=== PATIENT | female | born 1965 | race Caucasian/White ===

== ENCOUNTER 2020-08-04 18:48 | Inpatient (IN) | payer MEDICAID ==
[~2020-08-04] VITALS: Ht 160 cm; Wt 102.0 kg
[~2020-08-04 18:48] MED LIST: DULO-31 PO; HYDR-4353 PO; INSU100V36 SQ; LANS30CA37 PO; METF1000 PO; OLME20TA15 PO; SIME80TA5 PO; WARF-113 PO; levamir SQ
[2020-08-04] MEDS ORDERED: temazepam 15mg capsule PO PRN (21:00)
[2020-08-04] MEDS ORDERED: LEVO75TA7 PO (21:24)
[2020-08-04] MEDS ORDERED: INSU100I31 SQ (21:24)
[2020-08-04] MEDS ORDERED: METH-797 PO (21:24)
[2020-08-04] MEDS ORDERED: LOSA50TA64 PO (21:24)
[2020-08-04] MEDS ORDERED: CARV3.122 PO (21:24)
[2020-08-04] MEDS ORDERED: FURO40TA4 PO (21:24)
[2020-08-04] MEDS ORDERED: INSU100I39 (21:24)
[2020-08-04] MEDS ORDERED: acetaminophen 325mg tablet PO PRN (22:10)
[2020-08-04] MEDS ORDERED: bisacodyl 10mg suppository rectal RC PRN (22:10)
[2020-08-04] MEDS ORDERED: diphenhydrAMINE 25mg capsule PO PRN (22:10)
[2020-08-04] MEDS ORDERED: magnesium hydroxide 30ml (MOM) UD suspension PO PRN (22:10)
[2020-08-04] MEDS ORDERED: diphenhydrAMINE 50 mg/ml inj IV PRN (22:10)
[2020-08-04] MEDS ORDERED: mag hydrox/Alum hydrox/simeth 30ml oral suspension PO PRN (22:10)
[2020-08-04] MEDS ORDERED: ondansetron/PF 4mg/2ml inj IV PRN (22:10)
[2020-08-04] MEDS ORDERED: acetaminophen 650mg rectal suppository RC PRN (22:10)
[2020-08-04] MEDS ORDERED: ipratropium/albuterol 3ml nebule NEB PRN (22:10)
[2020-08-04] MEDS ORDERED: dextrose ORAL solution 15 GM/59 ML bottle PO PRN ×2 (22:30)
[2020-08-04] MEDS ORDERED: dextrose 50%-water 50ml dispensing syringe IV PRN ×2 (22:30)
[2020-08-04] MEDS ORDERED: MESSAGE TO PHARMACY PO ONE (22:30)
[2020-08-04] MEDS ORDERED: glucagon, human recombinant 1mg kit SUBCUT PRN (22:30)
[2020-08-04 22:47] LABS: BASOPHILS # (AUTO) 0.1 X10'3 (0-0.2); BASOPHILS % (AUTO) 1.5 % (0-1); EOSINOPHILS % (AUTO) 0.4 % (0-6); HEMATOCRIT 37.8 % (35.0-45.0); HEMOGLOBIN 12.2 g/dl (12.0-16.0); LYMPHOCYTES # (AUTO) 1.6 X10'3 (1.1-4.8); LYMPHOCYTES % (AUTO) 33.4 % (21-51); MEAN CORPUSCULAR HEMOGLOBIN 27.3 PG (27.0-31.0); MEAN CORPUSCULAR HGB CONC 32.3 g/dL (33.0-36.5); MEAN CORPUSCULAR VOLUME 84.5 FL (78-98); MEAN PLATELET VOLUME 8.1 FL (7.4-10.4); MONOCYTES # (AUTO) 0.5 X10'3 (0-0.9); MONOCYTES % (AUTO) 9.1 % (2-12); NEUTROPHILS # (AUTO) 2.7 X10'3 (1.8-7.7); NEUTROPHILS % (AUTO) 55.6 % (42-75); PLATELET COUNT 234 X10'3 (140-440); RED BLOOD COUNT 4.47 X10'6 (4.20-5.60); RED CELL DISTRIBUTION WIDTH 15.9 % (11.5-14.5); WHITE BLOOD COUNT 4.9 X10'3 (4.5-11.0)
[2020-08-04 22:56] LABS: PARTIAL THROMBOPLASTIN TIME 41 SECONDS (22-32)
[2020-08-04 22:59] LABS: ALANINE AMINOTRANSFERASE 22 U/L (12-78); ALBUMIN 2.9 G/DL (3.4-5.0); ALBUMIN/GLOBULIN RATIO 0.8 (1.1-1.5); ALKALINE PHOSPHATASE 81 IU/L (46-116); ANION GAP 9 (8-16); ASPARTATE AMINO TRANSFERASE 16 U/L (10-37); BILIRUBIN,TOTAL 0.5 MG/DL (0.1-1.0); BLOOD UREA NITROGEN 20 MG/DL (7-18); BUN/CREATININE RATIO 13.4 (6.6-38.0); CHLORIDE 100 MMOL/L (99-107); CREATININE 1.49 MG/DL (0.40-0.90); GLUCOSE 307 MG/DL (70-104); POTASSIUM 3.9 MMOL/L (3.5-5.1); SODIUM 141 MMOL/L (135-145); TOTAL PROTEIN 6.6 G/DL (6.4-8.2); eGFR 37 ML/MIN
[2020-08-04 23:00] LABS: HEMOGLOBIN A1C 9.3 % (4.5-6.2)
[2020-08-04 23:08] LABS: MAGNESIUM 1.9 MG/DL (1.5-2.4)
[2020-08-05] MEDS ORDERED: methylPREDNISolone sod succ 125mg/2ml vial IV SCH
[2020-08-05 03:20] LABS: ALANINE AMINOTRANSFERASE 21 U/L (12-78); ALBUMIN 2.9 G/DL (3.4-5.0); ALBUMIN/GLOBULIN RATIO 0.8 (1.1-1.5); ALKALINE PHOSPHATASE 78 IU/L (46-116); ANION GAP 11 (8-16); ASPARTATE AMINO TRANSFERASE 13 U/L (10-37); BILIRUBIN,TOTAL 0.5 MG/DL (0.1-1.0); BLOOD UREA NITROGEN 21 MG/DL (7-18); BUN/CREATININE RATIO 15.7 (6.6-38.0); CALCIUM 8.1 MG/DL (8.5-10.1); CHLORIDE 101 MMOL/L (99-107); CHOL/HDL RATIO 3.7 (0.00-4.99); CHOLESTEROL 140 MG/DL (0-200); CREATININE 1.34 MG/DL (0.40-0.90); GLUCOSE 294 MG/DL (70-104); HDL CHOLESTEROL 38 MG/DL (35-60); LDL CHOLESTEROL 81 MG/DL (50-100); POTASSIUM 3.9 MMOL/L (3.5-5.1); SODIUM 141 MMOL/L (135-145); TOTAL CARBON DIOXIDE 28.9 MMOL/L (24-32); TOTAL PROTEIN 6.7 G/DL (6.4-8.2); TRIGLYCERIDES 114 MG/DL (20-135); eGFR 41 ML/MIN
[2020-08-05 03:21] LABS: BASOPHILS % (AUTO) 0.2 % (0-1); EOSINOPHILS % (AUTO) 0.5 % (0-6); HEMATOCRIT 37.7 % (35.0-45.0); HEMOGLOBIN 12.1 g/dl (12.0-16.0); LYMPHOCYTES # (AUTO) 1.7 X10'3 (1.1-4.8); LYMPHOCYTES % (AUTO) 33.5 % (21-51); MEAN CORPUSCULAR HEMOGLOBIN 27.4 PG (27.0-31.0); MEAN CORPUSCULAR HGB CONC 32.1 g/dL (33.0-36.5); MEAN CORPUSCULAR VOLUME 85.3 FL (78-98); MEAN PLATELET VOLUME 8.1 FL (7.4-10.4); MONOCYTES # (AUTO) 0.5 X10'3 (0-0.9); MONOCYTES % (AUTO) 10.4 % (2-12); NEUTROPHILS # (AUTO) 2.9 X10'3 (1.8-7.7); NEUTROPHILS % (AUTO) 55.4 % (42-75); PLATELET COUNT 227 X10'3 (140-440); RED BLOOD COUNT 4.42 X10'6 (4.20-5.60); RED CELL DISTRIBUTION WIDTH 16.7 % (11.5-14.5); WHITE BLOOD COUNT 5.2 X10'3 (4.5-11.0)
[2020-08-05] MEDS: normal saline 1000ml 1,000 ML IV SCH ×2 (03:44→22:10)
[2020-08-05] MEDS: heparin, porcine 5000 units/ml vial SQ SCH ×2 (03:44→10:12)
[2020-08-05] MEDS ORDERED: CefTRIAXone/D5W-Rocephin 1gm 50 ML IV SCH (08:00)
[2020-08-05] MEDS ORDERED: azithromycin/NS 500mg/250ml 250 ML IV SCH (08:00)
[2020-08-05] MEDS ORDERED: dexamethasone sod phosphate 10mg/ml inj IV SCH (08:30)
[2020-08-05] MEDS ORDERED: ALBUTEROL INHALER 1 PUFF/90 MCG INHALER IH PRN (08:30)
[2020-08-05 09:59] LABS: C-REACTIVE PROTEIN 10.99 MG/DL (0.0-0.5)
[2020-08-05] MEDS: pantoprazole 40 MG vial IV SCH (10:04)
[2020-08-05] MEDS: REMDESIVIR (EUA) 100mg inj. 100 MG in normal saline 100ml IV soln 100 ML IV SCH (10:05)
[2020-08-05] MEDS: losartan 25mg tablet PO SCH (10:06)
[2020-08-05] MEDS: levoTHYROXINE 75mcg tablet PO SCH (10:06)
[2020-08-05] MEDS: duloxetine 30mg CAPSULE.DR PO SCH (10:12)
[2020-08-05] MEDS: carVEDilol 3.125mg tablet PO SCH ×2 (10:12→20:49)
--- NOTE | 2020-08-05 10:18 | NUR ---
Patient lying on right side when I entered room and got her phone for a call. Berta axox4 LUIS, denies pain, sob, numbness tingling Patient's BP cuff changed to adult long, patient sat probe off and when placed with her on nc 3.5 liter spo2 read 85% with good waveform nc to 6 liters
[2020-08-05 10:53] LABS: D-DIMER 0.36 MG/L FEU (0-0.50)
[2020-08-05] MEDS ORDERED: SPIR100T5 PO (11:18)
[2020-08-05] MEDS ORDERED: ATOR40TA72 PO (11:18)
[2020-08-05] MEDS ORDERED: GABA300C PO (11:18)
[2020-08-05] MEDS ORDERED: WARF1TAB83 PO (11:18)
--- NOTE | 2020-08-05 12:03 | NUR ---
PATIENT DOES NOT REMEMBER HER MEDICATIONS. CALLING HER
--- NOTE | 2020-08-05 12:16 | NUR ---
SPOKE TO AND THEN PHARMACIST TO CORRECT AND UPDATE MEDICATION RECONCILIATION
--- NOTE | 2020-08-05 20:00 | NUR ---
PER DISCUSSION WITH ADJUNCT INSTRUCTOR LOGAN, THE CORRECTIVE DOSE USING THE CALCULATION OF 14 UNITS FOR A BLOOD SUGAR OF 477
--- NOTE | 2020-08-05 20:34 | NUR ---
ATTEMPTED TO CALL REPORT
[2020-08-05] MEDS: insulin Lispro (HumaLOG) vial - multi-dose SQ SCH ×2 (20:47→22:08)
[2020-08-05] MEDS: gabapentin 300mg capsule PO SCH (20:50)
[2020-08-05] MEDS ORDERED: cyclobenzaprine 10mg tablet PO PRN (21:00)
[2020-08-05] MEDS ORDERED: warfarin 5mg tablet PO ONE (21:00)
--- NOTE | 2020-08-05 21:10 | NUR ---
REPORT TO HELP DESK ASSOCIATE KEIRA, PATIENT HAS ALL HER BELONGINGS WITH HER: CLOTHES THAT SHE IS WEARING PATIETN TO ROOM 3008 WITH RN ON MONITOR
[2020-08-05 21:20] VITALS: BP 104/72
--- NOTE | 2020-08-05 21:20 | NUR ---
Patient arrived on unit, vitals stable
[2020-08-05] MEDS: insulin glargine (Lantus) pen - multi-dose SQ SCH (22:12)
[2020-08-06 02:00] VITALS: BP 93/50
[2020-08-06] MEDS ORDERED: cyclobenzaprine 10mg tablet PO PRN (02:24)
--- NOTE | 2020-08-06 06:03 | NUR ---
orientee documentation: I have reviewed and agree with all interventions, assessments performed and documented by Laura MEJÍA.
--- NOTE | 2020-08-06 06:20 | NUR ---
Patient in room PCU 3008. I have received report from Hali MEJÍA and had the opportunity to ask questions and assume patient care.
--- NOTE | 2020-08-06 06:29 | NUR ---
Problems reprioritized. Patient report given, questions answered & plan of care reviewed with Purnima MEJÍA.
[2020-08-06] MEDS: losartan 25mg tablet PO SCH (08:00)
[2020-08-06 08:01] LABS: D-DIMER 0.22 MG/L FEU (0-0.50)
[2020-08-06 08:08] LABS: BASOPHILS % (AUTO) 0 % (0-1); EOSINOPHILS % (AUTO) 0 % (0-6); HEMATOCRIT 36.8 % (35.0-45.0); HEMOGLOBIN 11.9 g/dl (12.0-16.0); LYMPHOCYTES % (AUTO) 16.2 % (21-51); MEAN CORPUSCULAR HEMOGLOBIN 27.6 PG (27.0-31.0); MEAN CORPUSCULAR HGB CONC 32.3 g/dL (33.0-36.5); MEAN CORPUSCULAR VOLUME 85.4 FL (78-98); MEAN PLATELET VOLUME 8.7 FL (7.4-10.4); MONOCYTES # (AUTO) 0.5 X10'3 (0-0.9); MONOCYTES % (AUTO) 8.9 % (2-12); NEUTROPHILS # (AUTO) 4.5 X10'3 (1.8-7.7); NEUTROPHILS % (AUTO) 74.9 % (42-75); PLATELET COUNT 274 X10'3 (140-440); RED BLOOD COUNT 4.31 X10'6 (4.20-5.60)
[2020-08-06 08:29] LABS: ALANINE AMINOTRANSFERASE 26 U/L (12-78); ALBUMIN 2.9 G/DL (3.4-5.0); ALBUMIN/GLOBULIN RATIO 0.7 (1.1-1.5); ALKALINE PHOSPHATASE 75 IU/L (46-116); ANION GAP 9 (8-16); ASPARTATE AMINO TRANSFERASE 14 U/L (10-37); BILIRUBIN,TOTAL 0.4 MG/DL (0.1-1.0); BLOOD UREA NITROGEN 33 MG/DL (7-18); BUN/CREATININE RATIO 25.8 (6.6-38.0); C-REACTIVE PROTEIN 9.17 MG/DL (0.0-0.5); CALCIUM 8.5 MG/DL (8.5-10.1); CHLORIDE 101 MMOL/L (99-107); CREATININE 1.28 MG/DL (0.40-0.90); GLUCOSE 420 MG/DL (70-104); POTASSIUM 5.4 MMOL/L (3.5-5.1); SODIUM 139 MMOL/L (135-145); TOTAL CARBON DIOXIDE 28.6 MMOL/L (24-32); TOTAL PROTEIN 6.8 G/DL (6.4-8.2); eGFR 44 ML/MIN
[2020-08-06] MEDS ORDERED: normal saline 1000ml 1,000 ML IV SCH (08:45)
[2020-08-06 09:00] VITALS: BP_SYST 100; BP_SYST 98; BP_DIAS 54; BP_DIAS 55
[2020-08-06] MEDS: duloxetine 30mg CAPSULE.DR PO SCH (09:09)
[2020-08-06] MEDS: REMDESIVIR (EUA) 100mg inj. 100 MG in normal saline 100ml IV soln 100 ML IV SCH (09:09)
[2020-08-06] MEDS: acetaminophen 325mg tablet PO PRN (09:10)
[2020-08-06] MEDS: gabapentin 300mg capsule PO SCH ×3 (09:10→21:29)
[2020-08-06] MEDS: carVEDilol 3.125mg tablet PO SCH ×2 (09:10→19:32)
[2020-08-06] MEDS: levoTHYROXINE 75mcg tablet PO SCH (09:11)
[2020-08-06] MEDS: atorvastatin 20mg tablet PO SCH (09:11)
[2020-08-06] MEDS: dexamethasone 4mg/ml inj IV SCH ×2 (09:13→19:29)
[2020-08-06] MEDS: pantoprazole 40 MG vial IV SCH (09:13)
[2020-08-06] MEDS: insulin Lispro (HumaLOG) vial - multi-dose SQ SCH ×4 (10:11→21:39)
[2020-08-06 12:00] VITALS: BP 107/51
--- NOTE | 2020-08-06 12:12 | NUR ---
DM Consult: A1C 9.3 hx T2DM admit DX COVID-19 per EMR. Written DM ed w/ RD contact information placed in pt chart. Addendum: 08/06/20 at [address] Amended: Links added.
[2020-08-06 14:29] LABS: ALBUMIN 2.8 G/DL (3.4-5.0); ANION GAP 9 (8-16); BLOOD UREA NITROGEN 34 MG/DL (7-18); BUN/CREATININE RATIO 23.6 (6.6-38.0); CALCIUM 8.5 MG/DL (8.5-10.1); CHLORIDE 98 MMOL/L (99-107); CREATININE 1.44 MG/DL (0.40-0.90); POTASSIUM 5.5 MMOL/L (3.5-5.1); SODIUM 134 MMOL/L (135-145); eGFR 38 ML/MIN
[2020-08-06 14:30] LABS: GLUCOSE 498 MG/DL (70-104)
[2020-08-06 15:00] VITALS: BP 117/59
[2020-08-06] MEDS ORDERED: sodium polystyrene sulfonate 15gm/60ml oral suspension PO ONE (17:30)
[2020-08-06 18:00] VITALS: BP 121/64
--- NOTE | 2020-08-06 18:32 | NUR ---
Problems reprioritized. Patient report given, questions answered & plan of care reviewed with Brook MEJÍA.
[2020-08-06] MEDS ORDERED: warfarin 3mg tablet PO ONE (21:00)
--- NOTE | 2020-08-06 21:30 | NUR ---
MED NOTE: Coumadin non administered, order needs to be clarified with prescribing MD and pharmacy.
[2020-08-06] MEDS: insulin glargine (Lantus) pen - multi-dose SQ SCH (21:41)
[2020-08-06 22:00] VITALS: BP 114/62
[2020-08-07 02:00] VITALS: BP 105/68
--- NOTE | 2020-08-07 06:38 | NUR ---
Problems reprioritized. Patient report given, questions answered & plan of care reviewed with Lupe MEJÍA.
[2020-08-07 07:00] VITALS: BP 98/59
[2020-08-07 07:15] LABS: BASOPHILS % (AUTO) 0.1 % (0-1); EOSINOPHILS % (AUTO) 0 % (0-6); HEMATOCRIT 36.1 % (35.0-45.0); HEMOGLOBIN 11.7 g/dl (12.0-16.0); LYMPHOCYTES % (AUTO) 12.5 % (21-51); MEAN CORPUSCULAR HEMOGLOBIN 27.5 PG (27.0-31.0); MEAN CORPUSCULAR HGB CONC 32.5 g/dL (33.0-36.5); MEAN CORPUSCULAR VOLUME 84.4 FL (78-98); MEAN PLATELET VOLUME 8.8 FL (7.4-10.4); MONOCYTES # (AUTO) 0.5 X10'3 (0-0.9); MONOCYTES % (AUTO) 6.3 % (2-12); NEUTROPHILS # (AUTO) 6.3 X10'3 (1.8-7.7); NEUTROPHILS % (AUTO) 81.1 % (42-75); PLATELET COUNT 279 X10'3 (140-440); RED BLOOD COUNT 4.28 X10'6 (4.20-5.60); RED CELL DISTRIBUTION WIDTH 16.1 % (11.5-14.5); WHITE BLOOD COUNT 7.8 X10'3 (4.5-11.0)
[2020-08-07 07:27] LABS: D-DIMER < 0.19 MG/L FEU (0-0.50)
[2020-08-07 07:45] LABS: ALANINE AMINOTRANSFERASE 24 U/L (12-78); ALBUMIN 2.9 G/DL (3.4-5.0); ALBUMIN/GLOBULIN RATIO 0.8 (1.1-1.5); ALKALINE PHOSPHATASE 74 IU/L (46-116); ANION GAP 11 (8-16); ASPARTATE AMINO TRANSFERASE 15 U/L (10-37); BILIRUBIN,TOTAL 0.4 MG/DL (0.1-1.0); BLOOD UREA NITROGEN 33 MG/DL (7-18); BUN/CREATININE RATIO 30.6 (6.6-38.0); CALCIUM 8.5 MG/DL (8.5-10.1); CHLORIDE 104 MMOL/L (99-107); CREATININE 1.08 MG/DL (0.40-0.90); GLUCOSE 303 MG/DL (70-104); POTASSIUM 4.4 MMOL/L (3.5-5.1); SODIUM 141 MMOL/L (135-145); TOTAL PROTEIN 6.5 G/DL (6.4-8.2); eGFR 53 ML/MIN
[2020-08-07] MEDS: REMDESIVIR (EUA) 100mg inj. 100 MG in normal saline 100ml IV soln 100 ML IV SCH (07:46)
[2020-08-07] MEDS: normal saline 1000ml 1,000 ML IV SCH (07:46)
[2020-08-07] MEDS: dexamethasone 4mg/ml inj IV SCH ×2 (07:47→19:50)
[2020-08-07] MEDS: pantoprazole 40mg Tablet.DR PO SCH (07:47)
[2020-08-07] MEDS: levoTHYROXINE 75mcg tablet PO SCH (07:47)
[2020-08-07] MEDS: duloxetine 30mg CAPSULE.DR PO SCH (07:48)
[2020-08-07] MEDS: atorvastatin 20mg tablet PO SCH (07:48)
[2020-08-07] MEDS: gabapentin 300mg capsule PO SCH ×3 (07:48→19:50)
[2020-08-07] MEDS: carVEDilol 3.125mg tablet PO SCH ×2 (07:48→19:50)
--- NOTE | 2020-08-07 10:20 | NUR ---
Did not give Humalog. Med was not available. Called pharmacy and still awaiting med.
[2020-08-07 11:00] VITALS: BP 130/59
[2020-08-07] MEDS: losartan 25mg tablet PO SCH (12:46)
[2020-08-07] MEDS: insulin Lispro (HumaLOG) vial - multi-dose SQ SCH ×4 (13:42→21:24)
[2020-08-07 15:00] VITALS: BP 122/67
--- NOTE | 2020-08-07 17:47 | NUR ---
Paged Dr. Francis regarding blood sugar. PAGER ID: [phone] MESSAGE: [phone] Gertrudis Isabel. Blood sugar is still high its 409. [facility] Crystal [phone].
--- NOTE | 2020-08-07 17:48 | NUR ---
Dr. Francis wants 35 units of humalog insulin given now.
[2020-08-07 18:00] VITALS: BP 119/71
--- NOTE | 2020-08-07 18:09 | NUR ---
Dr. Francis wants to continue Humalog per protocol for dinner.
--- NOTE | 2020-08-07 18:20 | NUR ---
Problems reprioritized. Patient report given, questions answered & plan of care reviewed with Brook MEJÍA. Patient stable at transfer of care.
[2020-08-07] MEDS ORDERED: warfarin 3mg tablet PO ONE (21:00)
[2020-08-07] MEDS: insulin glargine (Lantus) pen - multi-dose SQ SCH (21:25)
[2020-08-07 22:00] VITALS: BP 126/71
[2020-08-08 02:00] VITALS: BP 124/70
[2020-08-08] MEDS: acetaminophen 325mg tablet PO PRN (02:40)
--- NOTE | 2020-08-08 06:14 | NUR ---
Problems reprioritized. Patient report given, questions answered & plan of care reviewed with Lupe Brown.
--- NOTE | 2020-08-08 06:15 | NUR ---
Patient in room PCU 3008. I have received report from Brook MEJÍA and had the opportunity to ask questions and assume patient care.
[2020-08-08 06:22] LABS: D-DIMER 0.22 MG/L FEU (0-0.50)
[2020-08-08 06:32] LABS: BASOPHILS % (AUTO) 0.3 % (0-1); EOSINOPHILS % (AUTO) 0 % (0-6); HEMATOCRIT 38.2 % (35.0-45.0); HEMOGLOBIN 12.5 g/dl (12.0-16.0); LYMPHOCYTES % (AUTO) 13.2 % (21-51); MEAN CORPUSCULAR HEMOGLOBIN 27.8 PG (27.0-31.0); MEAN CORPUSCULAR HGB CONC 32.7 g/dL (33.0-36.5); MEAN PLATELET VOLUME 8.6 FL (7.4-10.4); MONOCYTES # (AUTO) 0.7 X10'3 (0-0.9); MONOCYTES % (AUTO) 8.9 % (2-12); NEUTROPHILS # (AUTO) 5.8 X10'3 (1.8-7.7); NEUTROPHILS % (AUTO) 77.6 % (42-75); PLATELET COUNT 293 X10'3 (140-440); RED CELL DISTRIBUTION WIDTH 15.9 % (11.5-14.5); WHITE BLOOD COUNT 7.5 X10'3 (4.5-11.0)
[2020-08-08 06:47] LABS: ALANINE AMINOTRANSFERASE 26 U/L (12-78); ALBUMIN 2.9 G/DL (3.4-5.0); ALBUMIN/GLOBULIN RATIO 0.8 (1.1-1.5); ALKALINE PHOSPHATASE 73 IU/L (46-116); ANION GAP 9 (8-16); ASPARTATE AMINO TRANSFERASE 13 U/L (10-37); BILIRUBIN,TOTAL 0.4 MG/DL (0.1-1.0); BLOOD UREA NITROGEN 25 MG/DL (7-18); BUN/CREATININE RATIO 22.9 (6.6-38.0); C-REACTIVE PROTEIN 2.99 MG/DL (0.0-0.5); CALCIUM 8.7 MG/DL (8.5-10.1); CHLORIDE 108 MMOL/L (99-107); CREATININE 1.09 MG/DL (0.40-0.90); GLUCOSE 133 MG/DL (70-104); POTASSIUM 4.4 MMOL/L (3.5-5.1); SODIUM 145 MMOL/L (135-145); TOTAL CARBON DIOXIDE 27.7 MMOL/L (24-32); TOTAL PROTEIN 6.5 G/DL (6.4-8.2); eGFR 53 ML/MIN
[2020-08-08 07:00] VITALS: BP 121/65
[2020-08-08] MEDS: REMDESIVIR (EUA) 100mg inj. 100 MG in normal saline 100ml IV soln 100 ML IV SCH (07:37)
[2020-08-08] MEDS: dexamethasone 4mg/ml inj IV SCH ×2 (07:38→19:50)
[2020-08-08] MEDS: atorvastatin 20mg tablet PO SCH (07:38)
[2020-08-08] MEDS: duloxetine 30mg CAPSULE.DR PO SCH (07:38)
[2020-08-08] MEDS: pantoprazole 40mg Tablet.DR PO SCH (07:39)
[2020-08-08] MEDS: carVEDilol 3.125mg tablet PO SCH ×2 (07:39→19:50)
[2020-08-08] MEDS: losartan 25mg tablet PO SCH (07:39)
[2020-08-08] MEDS: gabapentin 300mg capsule PO SCH ×2 (07:40→19:50)
[2020-08-08] MEDS: levoTHYROXINE 75mcg tablet PO SCH (07:40)
[2020-08-08] MEDS: normal saline 1000ml 1,000 ML IV SCH (07:45)
[2020-08-08] MEDS: insulin Lispro (HumaLOG) vial - multi-dose SQ SCH ×3 (09:08→20:01)
[2020-08-08 11:00] VITALS: BP 130/75
--- NOTE | 2020-08-08 12:38 | NUR ---
O2 Sat at rest on room air 94% If below 89%: Recovery O2 Sat at rest on ___LPM:___%:___% via (mask/nasal cannula, etc..) No further documentation is necessary. If O2 Sat did not drop below 89% on room air,ambulate patient on room air. O2 Sat while ambulating on room air: 81% Recovery O2 Sat while ambulating on 4L nasal cannula 91% No further documentation is necessary. If patient does not drop below 89% while ambulating, he/she does not qualify for home O2.
[2020-08-08 15:00] VITALS: BP 134/72
--- NOTE | 2020-08-08 17:52 | NUR ---
Paged Dr. Schumacher regarding blood sugar PAGER ID: [phone] MESSAGE: [phone] Gertrudis Isabel. Blood sugar 302 before dinner. [facility] Lupe [phone]
--- NOTE | 2020-08-08 18:19 | NUR ---
Problems reprioritized. Patient report given, questions answered & plan of care reviewed with Sridevi MEJÍA. Patient stable at transfer of care.
[2020-08-08] MEDS: insulin glargine (Lantus) pen - multi-dose SQ SCH (19:58)
[2020-08-08 20:00] VITALS: BP 149/72
[2020-08-08] MEDS ORDERED: warfarin 3mg tablet PO ONE (21:00)
[2020-08-08 22:00] VITALS: BP 122/90
[2020-08-09 02:00] VITALS: BP 119/57
[2020-08-09 05:00] VITALS: BP 125/77
[2020-08-09 07:50] LABS: BASOPHILS % (AUTO) 0.5 % (0-1); EOSINOPHILS % (AUTO) 0 % (0-6); HEMATOCRIT 39.8 % (35.0-45.0); HEMOGLOBIN 12.7 g/dl (12.0-16.0); LYMPHOCYTES % (AUTO) 13.9 % (21-51); MEAN CORPUSCULAR HEMOGLOBIN 27.1 PG (27.0-31.0); MEAN CORPUSCULAR VOLUME 84.8 FL (78-98); MONOCYTES # (AUTO) 0.6 X10'3 (0-0.9); MONOCYTES % (AUTO) 7.8 % (2-12); NEUTROPHILS # (AUTO) 5.7 X10'3 (1.8-7.7); NEUTROPHILS % (AUTO) 77.8 % (42-75); PLATELET COUNT 304 X10'3 (140-440); RED BLOOD COUNT 4.69 X10'6 (4.20-5.60); RED CELL DISTRIBUTION WIDTH 16.4 % (11.5-14.5); WHITE BLOOD COUNT 7.4 X10'3 (4.5-11.0)
[2020-08-09 07:54] LABS: D-DIMER 0.28 MG/L FEU (0-0.50)
[2020-08-09 08:01] LABS: ALANINE AMINOTRANSFERASE 29 U/L (12-78); ALBUMIN 2.9 G/DL (3.4-5.0); ALBUMIN/GLOBULIN RATIO 0.8 (1.1-1.5); ALKALINE PHOSPHATASE 95 IU/L (46-116); ANION GAP 6 (8-16); ASPARTATE AMINO TRANSFERASE 13 U/L (10-37); BILIRUBIN,TOTAL 0.5 MG/DL (0.1-1.0); BLOOD UREA NITROGEN 30 MG/DL (7-18); BUN/CREATININE RATIO 25.2 (6.6-38.0); C-REACTIVE PROTEIN 1.92 MG/DL (0.0-0.5); CALCIUM 8.8 MG/DL (8.5-10.1); CHLORIDE 104 MMOL/L (99-107); CREATININE 1.19 MG/DL (0.40-0.90); GLUCOSE 311 MG/DL (70-104); POTASSIUM 4.7 MMOL/L (3.5-5.1); SODIUM 140 MMOL/L (135-145); TOTAL CARBON DIOXIDE 29.7 MMOL/L (24-32); TOTAL PROTEIN 6.5 G/DL (6.4-8.2); eGFR 47 ML/MIN
[2020-08-09] MEDS: dexamethasone 4mg/ml inj IV SCH (08:20)
[2020-08-09] MEDS: duloxetine 30mg CAPSULE.DR PO SCH (08:21)
[2020-08-09] MEDS: gabapentin 300mg capsule PO SCH (08:21)
[2020-08-09] MEDS: losartan 25mg tablet PO SCH (08:21)
[2020-08-09] MEDS: carVEDilol 3.125mg tablet PO SCH (08:21)
[2020-08-09] MEDS: atorvastatin 20mg tablet PO SCH (08:21)
[2020-08-09] MEDS: levoTHYROXINE 75mcg tablet PO SCH (08:21)
[2020-08-09] MEDS: pantoprazole 40mg Tablet.DR PO SCH (08:22)
[2020-08-09] MEDS: insulin Lispro (HumaLOG) vial - multi-dose SQ SCH ×2 (09:43→13:08)
[2020-08-09 11:00] VITALS: BP 132/71
[2020-08-09] MEDS ORDERED: PANT40TA54 PO (14:26)
[2020-08-09] MEDS ORDERED: DEXA6TAB PO (14:26)
--- NOTE | 2020-08-09 15:10 | NUR ---
Patient safe for discharged per providers orders. Medications called into pharmacy. PIV discontinued and cannula intact. Telemetry discontinued. Belongings sent home with patient. Patient wheeled to lobby by nurse. Went over discharge paper work with patient and spouse. Patient went home in private vehicle with spouse.
--- NOTE | 2020-08-09 15:21 | NUR ---
Initial: Pt presented to ER via air transport for COVID-19 pneumonia. Per MD note, pt improving on 4 L of oxygen per nasal cannula. Pt PO intake average 100% on carb controlled diet, pt meeting estimated nutrient needs. Last BM 08/07. Will continue to monitor for additional nutrition kcal/protein needs. Recommendations: 1) Continue carb controlled diet per MD 2) Bowel care per Rx 3) Scaled wt per Rx Addendum: 08/09/20 at [address] Amended: Links added. Addendum: 08/09/20 at [address] NADINE agrees w/ above underwriting intern note.
[2020-08-09] MEDS ORDERED: warfarin 3mg tablet PO ONE (21:00)
--- NOTE | 2020-08-10 14:34 | NUR ---
CASE MANAGEMENT DISCHARGE FOLLOW UP: Spoke with pt's , Abner, via telephone. Reports that pt is feeling very tired, SOB with exertion that resolves with rest, admits to an episode of transient CP this AM, describes pain as getting worse with inspiration, states self resolved, understands when to contact EMS/go to ED for CP; denies dizziness, fever/chills. Verbalizes understanding of s/sx requiring further evaluation/emergent assistance. Pt wearing O2 via NC @ 4L/min, states does not have an SpO2 monitor, advised that they can purchase OTC from any pharmacy, he verbalizes understanding. Educated pt's on purpose of decadron medication, he verbalizes understanding. Verbalizes compliance with MD discharge instructions. Verbalizes understanding of the importance in making/keeping follow-up appointments, they have called for an appointment with PCP, just waiting on callback. States no further questions/concerns at this time.
== END 2020-08-09 14:52 | disposition home or self-care (01) | DRG 137 ==
LOC: ER 18:50 → ED HOLD 22:07 → PCU 3S 08-05 21:36
PROVIDERS: ADMIT Family Medicine; ATTEND Family Medicine
PROC: XW033E5 Introduction of Remdesivir Anti-infective into Peripheral Vein, Percutaneous Approach, New Technology Group 5 (ICD-10-PCS; principal; 2020-08-05)
DX: U07.1 COVID-19 (principal); J96.01 Acute respiratory failure with hypoxia; J12.82 Pneumonia due to coronavirus disease 2019; N17.9 Acute kidney failure, unspecified; I11.0 Hypertensive heart disease with heart failure; I50.22 Chronic systolic (congestive) heart failure; E03.9 Hypothyroidism, unspecified; E11.65 Type 2 diabetes mellitus with hyperglycemia; E78.5 Hyperlipidemia, unspecified; E66.01 Morbid (severe) obesity due to excess calories; J45.909 Unspecified asthma, uncomplicated; Z68.39 Body mass index [BMI] 39.0-39.9, adult; Z86.718 Personal history of other venous thrombosis and embolism; Z86.73 Personal history of transient ischemic attack (TIA), and cerebral infarction without residual deficits; Z90.710 Acquired absence of both cervix and uterus; Z88.5 Allergy status to narcotic agent; Z88.8 Allergy status to other drugs, medicaments and biological substances; Z79.899 Other long term (current) drug therapy; Z79.4 Long term (current) use of insulin; E87.5 Hyperkalemia
CPT/HCPCS: 36415; 71270; 74176; 80048; 80053; 80061; 82948; 83036; 83605; 83735; 83880; 84100; 84145; 84443; 84484; 85025; 85379; 85610; 85730; 86140; 87040; 87081; 94760; 99285; C9113; G0378; J1100; J1644; J1815; J2930; J7030

== ENCOUNTER 2022-04-11 12:40 | Inpatient (IN) | payer MEDICAID ==
[~2022-04-11] VITALS: Ht 157.5 cm; Wt 96.8 kg
[~2022-04-11 12:40] MED LIST changes: +ATOR40TA72 PO; +CARV3.122 PO; +DEXA6TAB PO; +FURO40TA4 PO; +GABA300C PO; -HYDR-4353 PO; +INSU100I31 SQ; +INSU100I39 SQ; -INSU100V36 SQ; -LANS30CA37 PO; +LEVO75TA7 PO; +LOSA50TA64 PO; +METH-797 PO; -OLME20TA15 PO; +PANT40TA54 PO; -SIME80TA5 PO; +SPIR100T5 PO; +WARF1TAB83 PO; -levamir SQ
[2022-04-11 17:48] LABS: BASOPHILS % (AUTO) 0.5 % (0-1); EOSINOPHILS # (AUTO) 0.1 X10'3 (0-0.9); EOSINOPHILS % (AUTO) 1.5 % (0-6); LYMPHOCYTES # (AUTO) 1.8 X10'3 (1.1-4.8); LYMPHOCYTES % (AUTO) 20.1 % (21-51); MEAN CORPUSCULAR HEMOGLOBIN 19.3 PG (27.0-31.0); MEAN CORPUSCULAR HGB CONC 29.8 g/dL (33.0-36.5); MEAN CORPUSCULAR VOLUME 64.7 FL (78-98); MEAN PLATELET VOLUME 7.7 FL (7.4-10.4); MONOCYTES # (AUTO) 0.7 X10'3 (0-0.9); MONOCYTES % (AUTO) 7.4 % (2-12); NEUTROPHILS # (AUTO) 6.4 X10'3 (1.8-7.7); NEUTROPHILS % (AUTO) 70.5 % (42-75); PLATELET COUNT 462 X10'3 (140-440); RED BLOOD COUNT 3.28 X10'6 (4.20-5.60); RED CELL DISTRIBUTION WIDTH 19.6 % (11.5-14.5)
[2022-04-11 17:53] LABS: APTT 32 SECONDS (22-32)
[2022-04-11 17:55] LABS: HEMOGLOBIN 6.3 g/dl (12.0-16.0)
[2022-04-11 17:56] LABS: ALANINE AMINOTRANSFERASE 16 U/L (12-78); ALBUMIN 3.4 G/DL (3.4-5.0); ALBUMIN/GLOBULIN RATIO 0.9 (1.1-1.5); ALKALINE PHOSPHATASE 120 IU/L (46-116); ANION GAP 5 (8-16); ASPARTATE AMINO TRANSFERASE 11 U/L (10-37); BILIRUBIN,TOTAL 0.3 MG/DL (0.1-1.0); BLOOD UREA NITROGEN 21 MG/DL (7-18); BUN/CREATININE RATIO 14.5 (6.6-38.0); CALCIUM 9.2 MG/DL (8.5-10.1); CHLORIDE 96 MMOL/L (99-107); CREATININE 1.45 MG/DL (0.40-0.90); GLUCOSE 278 MG/DL (70-104); HEMATOCRIT 21.2 % (35.0-45.0); POTASSIUM 3.8 MMOL/L (3.5-5.1); SODIUM 134 MMOL/L (135-145); TOTAL CARBON DIOXIDE 32.7 MMOL/L (24-32); eGFR 37 ML/MIN
[2022-04-11 18:35] LABS: ANISOCYTOSIS 2+; MICROCYTOSIS 2+; PLATELET ESTIMATE INCREASED
[2022-04-11 18:36] LABS: ELLIPTOCYTES 1+; HYPOCHROMASIA 3+; POLYCHROMASIA FEW
[2022-04-11] MEDS ORDERED: diphenhydrAMINE 50 mg/ml inj IV STA (19:04)
--- NOTE | 2022-04-11 19:30 | NUR ---
Rehabilitation Inspector agrees with A Adán Guillory assessment.
[2022-04-11] MEDS ORDERED: acetaminophen 325mg tablet PO PRN (20:20)
[2022-04-11] MEDS ORDERED: potassium Cl 40MEQ/1/2NS 520ml 520 ML IV PRN (20:20)
[2022-04-11] MEDS ORDERED: ondansetron/PF 4mg/2ml inj IV PRN (20:20)
[2022-04-11] MEDS ORDERED: magnesium Cl slow-release 64mg tablet PO PRN (20:20)
[2022-04-11] MEDS ORDERED: magnesium 4gm in 100ml NS 100 ML IV PRN (20:20)
[2022-04-11] MEDS ORDERED: potassium Cl 20 mEq SR tablet PO PRN ×2 (20:20)
[2022-04-11 20:30] VITALS: BP 134/62
[2022-04-11 20:37] VITALS: BP 120/71
[2022-04-11 20:55] VITALS: BP 108/50
[2022-04-11 21:02] LABS: CLARITY,URINE SLIGHTLY CLOUDY (Clear); COLOR,URINE YELLOW (Yellow); GLUCOSE, URINE NEGATIVE (Neg); KETONES,URINE NEGATIVE (Neg); LEUKOCYTE ESTERASE ,URINE SMALL (Neg); NITRITES, URINE NEGATIVE (Neg); OCCULT BLOOD,URINE NEGATIVE (Neg); PROTEIN,URINE NEGATIVE (Neg); UROBILINOGEN,URINE 0.2 E.U/dL (0.2-1.0)
[2022-04-11 21:11] LABS: UA COLLECTION TYPE VOIDED
[2022-04-11 21:14] LABS: BACTERIA,URINE 1+ /HPF (Neg); MUCUS STRANDS FEW /LPF (Neg); SQUAMOUS EPITHELIAL CELL,UR MODERATE /LPF (FEW); TRANSITIONAL EPI CELLS,URINE FEW /HPF
[2022-04-11] MEDS: normal saline 1000ml 1,000 ML IV SCH (21:27)
[2022-04-11 21:40] VITALS: BP 115/40
[2022-04-11 22:38] VITALS: BP 99/47
[2022-04-11 23:11] VITALS: BP 134/76
[2022-04-12] VITALS (13 sets, daily range): BP systolic 86–139; BP diastolic 42–79
[2022-04-12 00:41] LABS: BASOPHILS # (AUTO) 0.1 X10'3 (0-0.2); BASOPHILS % (AUTO) 1.4 % (0-1); EOSINOPHILS # (AUTO) 0.1 X10'3 (0-0.9); EOSINOPHILS % (AUTO) 1.2 % (0-6); LYMPHOCYTES # (AUTO) 2.2 X10'3 (1.1-4.8); LYMPHOCYTES % (AUTO) 27.1 % (21-51); MEAN CORPUSCULAR HEMOGLOBIN 20.6 PG (27.0-31.0); MEAN CORPUSCULAR HGB CONC 30.8 g/dL (33.0-36.5); MEAN CORPUSCULAR VOLUME 66.9 FL (78-98); MEAN PLATELET VOLUME 7.5 FL (7.4-10.4); MONOCYTES # (AUTO) 0.7 X10'3 (0-0.9); MONOCYTES % (AUTO) 8.6 % (2-12); NEUTROPHILS % (AUTO) 61.7 % (42-75); PLATELET COUNT 384 X10'3 (140-440); RED CELL DISTRIBUTION WIDTH 21.1 % (11.5-14.5); WHITE BLOOD COUNT 8.1 X10'3 (4.5-11.0)
[2022-04-12 00:48] LABS: HEMATOCRIT 21.4 % (35.0-45.0); HEMOGLOBIN 6.6 g/dl (12.0-16.0)
[2022-04-12 01:29] LABS: ANISOCYTOSIS 3+; PLATELET ESTIMATE NORMAL
[2022-04-12 01:33] LABS: ELLIPTOCYTES FEW; HYPOCHROMASIA 2+; MICROCYTOSIS 2+; POLYCHROMASIA FEW
--- NOTE | 2022-04-12 02:09 | NUR ---
PT MOVED ONTO A HOSPITAL BED.
[2022-04-12] MEDS ORDERED: POLY119P2 PO (02:37)
[2022-04-12] MEDS ORDERED: NITR0.4T51 SL (02:37)
[2022-04-12] MEDS ORDERED: multivitamin PO (02:37)
--- NOTE | 2022-04-12 03:13 | NUR ---
Patient in room PCU 3027. I have received report from MICAH MEJÍA and had the opportunity to ask questions and assume patient care.UNKNOWN SOURCE OF BLEED PER RN, O+/IRRADIATED. WILL CONTACT K FOR FURTHER INSTRUCTIONS.
[2022-04-12] MEDS: K and/or MAG REPLACEMENT MC SCH ×2 (05:08→20:00)
[2022-04-12] MEDS: normal saline 1000ml 1,000 ML IV SCH (05:08)
[2022-04-12] MEDS ORDERED: PERFLUTREN PROTEIN-A MICROSPHR (Optison) 0.22 MG/ML 3ML VIAL IV ONE (06:15)
[2022-04-12 06:28] LABS: BASOPHILS % (AUTO) 0.4 % (0-1); EOSINOPHILS # (AUTO) 0.2 X10'3 (0-0.9); EOSINOPHILS % (AUTO) 1.8 % (0-6); HEMATOCRIT 25.1 % (35.0-45.0); HEMOGLOBIN 7.7 g/dl (12.0-16.0); LYMPHOCYTES # (AUTO) 2.1 X10'3 (1.1-4.8); LYMPHOCYTES % (AUTO) 23.5 % (21-51); MEAN CORPUSCULAR HEMOGLOBIN 20.8 PG (27.0-31.0); MEAN CORPUSCULAR HGB CONC 30.7 g/dL (33.0-36.5); MEAN CORPUSCULAR VOLUME 67.8 FL (78-98); MEAN PLATELET VOLUME 7.6 FL (7.4-10.4); MONOCYTES # (AUTO) 0.9 X10'3 (0-0.9); MONOCYTES % (AUTO) 9.7 % (2-12); NEUTROPHILS # (AUTO) 5.8 X10'3 (1.8-7.7); NEUTROPHILS % (AUTO) 64.6 % (42-75); PLATELET COUNT 379 X10'3 (140-440); RED CELL DISTRIBUTION WIDTH 20.7 % (11.5-14.5); WHITE BLOOD COUNT 8.9 X10'3 (4.5-11.0)
[2022-04-12 06:34] LABS: ALBUMIN 3.1 G/DL (3.4-5.0); ANION GAP 4 (8-16); BLOOD UREA NITROGEN 16 MG/DL (7-18); BUN/CREATININE RATIO 12.8 (6.6-38.0); CALCIUM 8.9 MG/DL (8.5-10.1); CHLORIDE 102 MMOL/L (99-107); CREATININE 1.25 MG/DL (0.40-0.90); GLUCOSE 76 MG/DL (70-104); POTASSIUM 3.6 MMOL/L (3.5-5.1); SODIUM 140 MMOL/L (135-145); TOTAL CARBON DIOXIDE 34.2 MMOL/L (24-32); eGFR 44 ML/MIN
--- NOTE | 2022-04-12 06:45 | NUR ---
Problems reprioritized. Patient report given, questions answered & plan of care reviewed with JYOTI MEJÍA.
[2022-04-12 07:11] LABS: % IRON SATURATION 23 % (11-46); IRON 104 UG/DL (49-151); TOTAL IRON BINDING CAPACITY 451 UG/DL (259-388)
[2022-04-12] MEDS ORDERED: DEXTROSE 15 GM of carb/4 tabs (each vial/BOTTLE has 4 tablets) PO PRN ×2 (07:55)
[2022-04-12] MEDS ORDERED: dextrose 50%-water 50ml dispensing syringe IV PRN ×2 (07:55)
[2022-04-12] MEDS ORDERED: MESSAGE TO PHARMACY PO ONE (07:55)
[2022-04-12] MEDS ORDERED: glucagon, human recombinant 1mg kit SUBCUT PRN (07:55)
[2022-04-12] MEDS ORDERED: insulin Lispro (HumaLOG) vial - multi-dose SQ SCH (07:55)
[2022-04-12] MEDS ORDERED: diazepam inj 5 MG/ML inj. IV ONE (10:00)
[2022-04-12] MEDS: pantoprazole 40MG/NS 100ML BAG 100 ML IV SCH ×2 (10:34→11:05)
--- NOTE | 2022-04-12 11:40 | NUR ---
1000 rn updated at bedside. contacted picc rn for access. 1140 - RN spoke to . GI lab requesting information on pt last coumadin dose. According to , the last dose was the evening of the . Rn informed GI lab that pt will need wheelchair and O2. Addendum: 04/12/22 at 1245 by Ej Dudley RN 1230 -- Resource rn informed nurse that pt hypoglycemia. Approximately 1235 RN gave D50 per order. Pt resting in bed, talking to rn, oriented x 4 and alert. Pt left with GI Rn at 1239. GAME BREEDING FARM MANAGER informed GI RN that glucose would need to be rechecked in 15 min. Pt left in wheelchair w/ O2 tank.
[2022-04-12] MEDS ORDERED: FENTANYL CITRATE/PF 50 MCG/1 ML VIAL ONE (11:57)
[2022-04-12] MEDS ORDERED: LIDOcaine Viscous 15ml cup ONE (11:58)
[2022-04-12] MEDS ORDERED: MIDAZolam 1 MG/ML 5ML VIAL ONE (11:58)
[2022-04-12] MEDS ORDERED: PEG 3350/Na sulf,bicarb,Cl/KCl oral sol 4 liter bottle PO ONE (13:25)
[2022-04-12] MEDS: diazepam inj 5 MG/ML inj. IV PRN ×2 (16:26→23:20)
[2022-04-12] MEDS ORDERED: MULT-1085 PO (16:55)
[2022-04-12] MEDS ORDERED: nitroGLYCERIN 0.4mg SUBLingual tab SL PRN (17:45)
[2022-04-12] MEDS ORDERED: albuterol 2.5 MG/3 ML nebule NEB PRN (17:55)
[2022-04-12] MEDS ORDERED: ipratropium/albuterol 3ml nebule NEB PRN (17:55)
[2022-04-12] MEDS ORDERED: cyclobenzaprine 10mg tablet PO PRN (18:00)
[2022-04-12] MEDS: insulin glargine (Lantus) pen - multi-dose SQ SCH (21:00)
[2022-04-12] MEDS: gabapentin 300mg capsule PO SCH (21:05)
[2022-04-12] MEDS: carVEDilol 3.125mg tablet PO SCH (21:05)
[2022-04-13] VITALS (8 sets, daily range): BP systolic 102–134; BP diastolic 52–68
[2022-04-13] MEDS: atorvastatin 20mg tablet PO SCH (08:00)
[2022-04-13] MEDS: carVEDilol 3.125mg tablet PO SCH ×2 (08:00→20:00)
[2022-04-13] MEDS: K and/or MAG REPLACEMENT MC SCH ×2 (08:00→20:00)
[2022-04-13] MEDS: losartan 25mg tablet PO SCH (08:00)
[2022-04-13] MEDS: pantoprazole 40MG/NS 100ML BAG 100 ML IV SCH ×2 (08:00→20:00)
[2022-04-13] MEDS: levoTHYROXINE 75mcg tablet PO SCH (08:00)
[2022-04-13] MEDS: multivitamins, therapeutics tablet PO SCH (08:00)
[2022-04-13] MEDS: furosemide 40mg/4ml inj IV SCH (08:00)
[2022-04-13] MEDS: duloxetine 30mg CAPSULE.DR PO SCH (08:00)
[2022-04-13] MEDS: gabapentin 300mg capsule PO SCH ×3 (08:00→21:00)
[2022-04-13 08:04] LABS: BASOPHILS # (AUTO) 0.1 X10'3 (0-0.2); BASOPHILS % (AUTO) 0.6 % (0-1); EOSINOPHILS # (AUTO) 0.2 X10'3 (0-0.9); HEMOGLOBIN 8.2 g/dl (12.0-16.0); LYMPHOCYTES # (AUTO) 1.6 X10'3 (1.1-4.8); LYMPHOCYTES % (AUTO) 19.1 % (21-51); MEAN CORPUSCULAR HEMOGLOBIN 20.9 PG (27.0-31.0); MEAN CORPUSCULAR HGB CONC 30.3 g/dL (33.0-36.5); MEAN CORPUSCULAR VOLUME 68.7 FL (78-98); MEAN PLATELET VOLUME 7.9 FL (7.4-10.4); MONOCYTES # (AUTO) 0.7 X10'3 (0-0.9); MONOCYTES % (AUTO) 8.5 % (2-12); NEUTROPHILS # (AUTO) 5.9 X10'3 (1.8-7.7); NEUTROPHILS % (AUTO) 69.8 % (42-75); PLATELET COUNT 389 X10'3 (140-440); RED BLOOD COUNT 3.93 X10'6 (4.20-5.60); RED CELL DISTRIBUTION WIDTH 20.7 % (11.5-14.5); WHITE BLOOD COUNT 8.5 X10'3 (4.5-11.0)
[2022-04-13] MEDS: spironolactone 25 MG tablet PO SCH (08:30)
[2022-04-13 08:51] LABS: PLATELET ESTIMATE NORMAL
[2022-04-13 08:53] LABS: HYPOCHROMASIA 2+; POLYCHROMASIA 2+
[2022-04-13 08:54] LABS: ANISOCYTOSIS 3+; ELLIPTOCYTES 1+; MICROCYTOSIS 2+; SPHEROCYTES FEW
[2022-04-13 09:37] LABS: ALBUMIN 3.2 G/DL (3.4-5.0); ANION GAP 11 (8-16); BLOOD UREA NITROGEN 10 MG/DL (7-18); BUN/CREATININE RATIO 10.1 (6.6-38.0); CHLORIDE 104 MMOL/L (99-107); CREATININE 0.99 MG/DL (0.40-0.90); GLUCOSE 96 MG/DL (70-104); MAGNESIUM 2.1 MG/DL (1.5-2.4); POTASSIUM 3.7 MMOL/L (3.5-5.1); SODIUM 144 MMOL/L (135-145); TOTAL CARBON DIOXIDE 29.5 MMOL/L (24-32); eGFR 58 ML/MIN
--- NOTE | 2022-04-13 12:15 | NUR ---
DM Consult: Pt hx DM A1C 8.3% down from 9.3% prior 08/04/[address] attempted verbal DM ed however pt deeply sleeping snoring during RD visit. Written DM diet ed w/ RD contact information left at bedside.
[2022-04-13] MEDS ORDERED: MIDAZolam 1 MG/ML 5ML VIAL ONE (15:04)
[2022-04-13] MEDS ORDERED: FENTANYL CITRATE/PF 50 MCG/1 ML VIAL ONE (15:04)
[2022-04-13] MEDS: insulin glargine (Lantus) pen - multi-dose SQ SCH (21:00)
[2022-04-13] MEDS: diatr meglu/diatrizoate 30ml oral sol.-(3 dose) bottle PO SCH (21:00)
[2022-04-13] MEDS: normal saline 1000ml 1,000 ML IV SCH (22:20)
[2022-04-14] MEDS: oxyCODONE/APAP 5-325mg tablet PO PRN ×3 (01:46→13:14)
[2022-04-14] MEDS: diatr meglu/diatrizoate 30ml oral sol.-(3 dose) bottle PO SCH (07:22)
[2022-04-14 07:23] LABS: BASOPHILS % (AUTO) 0.2 % (0-1); EOSINOPHILS # (AUTO) 0.2 X10'3 (0-0.9); EOSINOPHILS % (AUTO) 2.4 % (0-6); HEMATOCRIT 25.1 % (35.0-45.0); HEMOGLOBIN 7.5 g/dl (12.0-16.0); LYMPHOCYTES # (AUTO) 1.7 X10'3 (1.1-4.8); LYMPHOCYTES % (AUTO) 20.9 % (21-51); MEAN CORPUSCULAR HEMOGLOBIN 20.8 PG (27.0-31.0); MEAN CORPUSCULAR HGB CONC 29.9 g/dL (33.0-36.5); MEAN CORPUSCULAR VOLUME 69.4 FL (78-98); MEAN PLATELET VOLUME 7.6 FL (7.4-10.4); MONOCYTES # (AUTO) 0.7 X10'3 (0-0.9); MONOCYTES % (AUTO) 8.4 % (2-12); NEUTROPHILS # (AUTO) 5.6 X10'3 (1.8-7.7); NEUTROPHILS % (AUTO) 68.1 % (42-75); PLATELET COUNT 367 X10'3 (140-440); RED BLOOD COUNT 3.62 X10'6 (4.20-5.60); WHITE BLOOD COUNT 8.2 X10'3 (4.5-11.0)
[2022-04-14] MEDS: multivitamins, therapeutics tablet PO SCH (08:00)
[2022-04-14] MEDS: losartan 25mg tablet PO SCH (08:00)
[2022-04-14] MEDS: duloxetine 30mg CAPSULE.DR PO SCH (08:00)
[2022-04-14] MEDS: atorvastatin 20mg tablet PO SCH (08:00)
[2022-04-14] MEDS: K and/or MAG REPLACEMENT MC SCH (08:00)
[2022-04-14] MEDS: gabapentin 300mg capsule PO SCH ×2 (08:00→13:14)
[2022-04-14] MEDS: levoTHYROXINE 75mcg tablet PO SCH (08:00)
[2022-04-14] MEDS: carVEDilol 3.125mg tablet PO SCH (08:00)
[2022-04-14] MEDS: spironolactone 25 MG tablet PO SCH (08:30)
[2022-04-14 08:32] LABS: ANISOCYTOSIS 3+; HYPOCHROMASIA 1+; MICROCYTOSIS 2+; PLATELET ESTIMATE NORMAL; POIKILOCYTOSIS 1+
[2022-04-14] MEDS: furosemide 40mg/4ml inj IV SCH (08:56)
[2022-04-14] MEDS: pantoprazole 40MG/NS 100ML BAG 100 ML IV SCH (08:56)
[2022-04-14] MEDS: normal saline 1000ml 1,000 ML IV SCH (08:57)
[2022-04-14 09:05] LABS: ALBUMIN 3.1 G/DL (3.4-5.0); ANION GAP 2 (8-16); BLOOD UREA NITROGEN 7 MG/DL (7-18); CALCIUM 8.6 MG/DL (8.5-10.1); CHLORIDE 109 MMOL/L (99-107); GLUCOSE 168 MG/DL (70-104); MAGNESIUM 1.8 MG/DL (1.5-2.4); POTASSIUM 3.8 MMOL/L (3.5-5.1); SODIUM 143 MMOL/L (135-145); TOTAL CARBON DIOXIDE 31.9 MMOL/L (24-32); eGFR 58 ML/MIN
[2022-04-14 13:00] VITALS: BP 101/53
--- NOTE | 2022-04-14 14:39 | NUR ---
PT DISCHARGED. HE LEFT ACCOMPANIED BY HER .
== END 2022-04-14 14:31 | disposition home or self-care (01) | DRG 240 ==
LOC: ER 12:40 → ED HOLD 20:22 → PCU 3S 04-12 04:19
PROVIDERS: ADMIT Internal Medicine; ATTEND Internal Medicine
PROC: 30233N1 Transfusion of Nonautologous Red Blood Cells into Peripheral Vein, Percutaneous Approach (ICD-10-PCS; 2022-04-11)
PROC: 0DJ08ZZ Inspection of Upper Intestinal Tract, Via Natural or Artificial Opening Endoscopic (ICD-10-PCS; principal; 2022-04-12)
PROC: 0DBQ8ZX Excision of Anus, Via Natural or Artificial Opening Endoscopic, Diagnostic (ICD-10-PCS; 2022-04-13)
PROC: 0DBH8ZX Excision of Cecum, Via Natural or Artificial Opening Endoscopic, Diagnostic (ICD-10-PCS; 2022-04-13)
PROC: 0DBL8ZX Excision of Transverse Colon, Via Natural or Artificial Opening Endoscopic, Diagnostic (ICD-10-PCS; 2022-04-13)
DX: C18.9 Malignant neoplasm of colon, unspecified (principal); J96.11 Chronic respiratory failure with hypoxia; D62 Acute posthemorrhagic anemia; E11.42 Type 2 diabetes mellitus with diabetic polyneuropathy; K21.9 Gastro-esophageal reflux disease without esophagitis; E03.9 Hypothyroidism, unspecified; E66.01 Morbid (severe) obesity due to excess calories; E78.00 Pure hypercholesterolemia, unspecified; I11.0 Hypertensive heart disease with heart failure; Z66 Do not resuscitate; K29.70 Gastritis, unspecified, without bleeding; K31.7 Polyp of stomach and duodenum; I25.10 Atherosclerotic heart disease of native coronary artery without angina pectoris; R25.2 Cramp and spasm; I50.22 Chronic systolic (congestive) heart failure; K63.5 Polyp of colon; K57.30 Diverticulosis of large intestine without perforation or abscess without bleeding; J44.9 Chronic obstructive pulmonary disease, unspecified; K44.9 Diaphragmatic hernia without obstruction or gangrene; F32.A Depression, unspecified; Z79.01 Long term (current) use of anticoagulants; Z79.4 Long term (current) use of insulin; I25.2 Old myocardial infarction; Z79.899 Other long term (current) drug therapy; Z86.711 Personal history of pulmonary embolism; Z86.73 Personal history of transient ischemic attack (TIA), and cerebral infarction without residual deficits; Z90.710 Acquired absence of both cervix and uterus; Z68.39 Body mass index [BMI] 39.0-39.9, adult; Z88.5 Allergy status to narcotic agent; Z86.718 Personal history of other venous thrombosis and embolism
CPT/HCPCS: 36415; 36430; 43235; 45335; 45380; 45381; 45385; 71045; 74176; 80048; 80053; 81001; 82948; 83036; 83540; 83550; 83735; 83880; 84132; 84484; 85008; 85025; 85610; 85730; 86885; 86900; 86901; 86920; 87077; 87088; 87186; 93005; 93306; 94760; 99152; 99153; 99285; A4620; C1889; C9113; G0378; J1200; J1815; J1940; J2250; J3010; J3360; J3490; J7030; J7040; P9016; Q9963